=== PATIENT | female | born 1940 | race Caucasian/White ===

== ENCOUNTER → 2020-03-26 | Outpatient (CLI) | payer MEDICARE, OTHER | LOC: AMSURD 10:19 | DX: R00.2 Palpitations (principal) ==

== ENCOUNTER → 2020-03-30 | Outpatient (CLI) | payer MEDICARE, OTHER | LOC: RAD 08:00 | DX: R10.11 Right upper quadrant pain (principal); R11.2 Nausea with vomiting, unspecified ==

== ENCOUNTER → 2020-09-01 | Outpatient (CLI) | payer MEDICARE, OTHER | LOC: RAD 10:06 | DX: S62.305A Unspecified fracture of fourth metacarpal bone, left hand, initial encounter for closed fracture (principal); M19.042 Primary osteoarthritis, left hand ==

== ENCOUNTER → 2020-09-09 | Outpatient (CLI) | payer MEDICARE, OTHER | LOC: RAD 10:15 | DX: M79.642 Pain in left hand (principal); R07.89 Other chest pain ==

== ENCOUNTER → 2021-02-11 | Outpatient (CLI) | payer MEDICARE, OTHER | LOC: LAB 16:53 | DX: N39.0 Urinary tract infection, site not specified (principal) ==

== ENCOUNTER → 2021-03-12 | Outpatient (CLI) | payer MEDICARE, OTHER | LOC: LAB 08:26 | DX: Z01.89 Encounter for other specified special examinations (principal) ==

== ENCOUNTER → 2021-11-02 | Outpatient (CLI) | payer MEDICARE | LOC: RAD 14:42 | DX: Z85.9 Personal history of malignant neoplasm, unspecified (principal) ==

== ENCOUNTER → 2022-04-25 | Outpatient (CLI) | payer MEDICARE | LOC: LAB 09:34 | DX: Z00.00 Encounter for general adult medical examination without abnormal findings (principal); Z13.220 Encounter for screening for lipoid disorders; E03.4 Atrophy of thyroid (acquired); K90.9 Intestinal malabsorption, unspecified; E53.8 Deficiency of other specified B group vitamins; M72.0 Palmar fascial fibromatosis [Dupuytren]; Z85.048 Personal history of other malignant neoplasm of rectum, rectosigmoid junction, and anus ==

== ENCOUNTER → 2023-09-21 | Outpatient (CLI) | payer MEDICARE ==
[~2023-09-21] MED LIST: BISOPROLOL FUMA10 M1 PO; BISOPROLOL FUMAR5 GM MC; CEFDINIR300 MG PO; CLINDAMYCIN 300MG PO; CYANOCOBAL1000 MCG/1 IM; LEVOTHYROXIN0.075 MG PO; NORCO 325 MG-51 TA1 PO
[2023-09-21 11:57] LABS: BASO # 0.05 K/mm3 (0.02-0.10); EOS % 1.6 % (1.0-5.0); HEMATOCRIT 34.8 % (37.0-47.0); LYMPH# 1.37 K/mm3 (1.50-4.00); MEAN CELL VOLUME 109 fl (78-100); MEAN CORPUSCULAR HEMOGLOBIN 35 pg (27-31); MEAN CORPUSCULAR HGB CONC 32 g/dL (33-37); MEAN PLATELET VOLUME 11.2 fl (7.4-10.4); MONO # 0.51 K/mm3 (0.20-0.80); NEU # 4.11 K/mm3 (1.40-6.50); PLATELET COUNT 153 K/mm3 (130-400); RED BLOOD COUNT 3.19 M/mm3 (4.10-5.30); RED CELL DISTRIBUTION WIDTH 12.2 % (11.5-14.5); WHITE BLOOD COUNT 6.2 K/mm3 (4.8-10.8)
[2023-09-21 12:04] LABS: CALCIUM 9.7 mg/dL (8.3-10.5)
[2023-09-21 12:06] LABS: TOTAL PROTEIN 6.6 g/dL (6.2-8.1)
[2023-09-21 12:07] LABS: TOTAL BILIRUBIN 0.6 mg/dL (0.2-1.2)
== END ==
LOC: LAB 11:26
PROVIDERS: Physician Assistant
DX: Z12.11 Encounter for screening for malignant neoplasm of colon (principal); E03.4 Atrophy of thyroid (acquired); E78.5 Hyperlipidemia, unspecified; K90.9 Intestinal malabsorption, unspecified; E53.8 Deficiency of other specified B group vitamins; Z85.048 Personal history of other malignant neoplasm of rectum, rectosigmoid junction, and anus

== ENCOUNTER → 2024-10-10 | Outpatient (CLI) | payer MEDICARE ==
[2024-10-10 12:38] LABS: HEMATOCRIT 36.2 % (37.0-47.0); HEMOGLOBIN 11.3 g/dL (12.5-16.0); MEAN PLATELET VOLUME 11.5 fl (7.4-10.4); RED BLOOD COUNT 3.27 M/mm3 (4.10-5.30); RED CELL DISTRIBUTION WIDTH 12.2 % (11.5-14.5)
[2024-10-10 12:46] LABS: ALBUMIN 4.2 g/dL (3.4-4.8)
[2024-10-10 12:47] LABS: CALCIUM 9.5 mg/dL (8.3-10.5)
[2024-10-10 12:49] LABS: TOTAL PROTEIN 6.8 g/dL (6.2-8.1)
[2024-10-10 12:50] LABS: TOTAL BILIRUBIN 0.6 mg/dL (0.2-1.2)
== END ==
LOC: LAB 12:21
PROVIDERS: Physician Assistant
DX: E03.4 Atrophy of thyroid (acquired) (principal); R00.2 Palpitations; E78.5 Hyperlipidemia, unspecified; K90.9 Intestinal malabsorption, unspecified

== ENCOUNTER → 2024-12-16 | Outpatient (CLI) | payer MEDICARE | LOC: LAB 13:24 | DX: E55.9 Vitamin D deficiency, unspecified (principal); E03.4 Atrophy of thyroid (acquired) ==

== ENCOUNTER → 2025-01-01 | Outpatient (CLI) | payer MEDICARE ==
[~2025-01-01] MED LIST changes: +BUMETANIDE0.5 M1 PO; +FUROSEMIDE20 MG PO
== END ==
LOC: LAB 07:00
DX: Z13.1 Encounter for screening for diabetes mellitus (principal)

== ENCOUNTER 2025-01-02 10:43 | Emergency (ER) | payer MEDICARE ==
[~2025-01-02] VITALS: Ht 172.7 cm; Wt 85.0 kg
[~2025-01-02 10:43] MED LIST changes: -BUMETANIDE0.5 M1 PO; -FUROSEMIDE20 MG PO
[2025-01-02 11:05] LABS: BASO # 0.04 K/mm3 (0.02-0.10); EOS # 0.05 K/mm3 (0.04-0.40); EOS % 0.6 % (1.0-5.0); HEMATOCRIT 28.3 % (37.0-47.0); LYMPH# 1.36 K/mm3 (1.50-4.00); MEAN CELL VOLUME 109 fl (78-100); MEAN CORPUSCULAR HEMOGLOBIN 35 pg (27-31); MEAN CORPUSCULAR HGB CONC 32 g/dL (33-37); MEAN PLATELET VOLUME 11.6 fl (7.4-10.4); MONO # 0.62 K/mm3 (0.20-0.80); NEU # 6.44 K/mm3 (1.40-6.50); PLATELET COUNT 131 K/mm3 (130-400); RED BLOOD COUNT 2.59 M/mm3 (4.10-5.30); WHITE BLOOD COUNT 8.5 K/mm3 (4.8-10.8)
[2025-01-02 11:12] LABS: ALBUMIN 3.8 g/dL (3.4-4.8)
[2025-01-02 11:13] LABS: SODIUM 144 mmol/L (136-145)
[2025-01-02 11:14] LABS: CALCIUM 9.2 mg/dL (8.3-10.5)
[2025-01-02 11:15] LABS: GLUCOSE 93 mg/dL (65-105); TOTAL PROTEIN 6.3 g/dL (6.2-8.1)
[2025-01-02 11:16] LABS: CARBON DIOXIDE 21 mmol/L (23-31)
[2025-01-02 11:17] LABS: TOTAL BILIRUBIN 0.6 mg/dL (0.2-1.2)
[2025-01-02 11:20] LABS: AST-SGOT 31 U/L (5-34); D-DIMER 1.54 mg/L FEU (0.15-0.50)
[2025-01-02 11:21] LABS: ALT/SGPT 23 U/L (0-55)
[2025-01-02 11:22] LABS: LIPASE 11 U/L (8-78)
[2025-01-02 11:28] LABS: TROPONIN-I < 0.030 ng/mL (0.00-0.033)
[2025-01-02] MEDS ORDERED: FUROSEMIDE20 MG PO (11:33)
[2025-01-02] MEDS ORDERED: Iohexol 350 - 100 ML VIAL IV ONE (11:46)
[2025-01-02] MEDS ORDERED: NS 100 ML IV SCH (11:47)
[2025-01-02] MEDS ORDERED: Bumetanide 1 MG/4 ML VIAL IV ONE (12:45)
[2025-01-02 13:45] VITALS: BP 167/93
== END 2025-01-02 13:45 | disposition other institution (70) ==
LOC: ED 10:43
PROVIDERS: Family Medicine
DX: R60.0 Localized edema (principal); D64.9 Anemia, unspecified; R79.1 Abnormal coagulation profile; I44.0 Atrioventricular block, first degree; R00.1 Bradycardia, unspecified; I10 Essential (primary) hypertension; Z79.899 Other long term (current) drug therapy; Z85.038 Personal history of other malignant neoplasm of large intestine
CPT/HCPCS: J1650; Q9967

== ENCOUNTER 2025-01-02 13:24 | Inpatient (IN) | payer MEDICARE ==
[~2025-01-02] VITALS: Ht 172.7 cm; Wt 79.7 kg
[~2025-01-02 13:24] MED LIST changes: +FUROSEMIDE20 MG PO
[2025-01-02] MEDS ORDERED: Polyethylene Glycol 3350 Powder 17 GM PACKET PO PRN (13:30)
[2025-01-02] MEDS ORDERED: Acetaminophen 500 MG TAB PO PRN (13:30)
[2025-01-02 14:18] VITALS: BP 180/85
[2025-01-02 15:58] VITALS: BP 166/77
[2025-01-02 19:00] VITALS: BP 172/85
[2025-01-02 23:00] VITALS: BP 160/76
[2025-01-03 03:00] VITALS: BP 119/71
[2025-01-03 07:00] VITALS: BP 151/75
[2025-01-03 07:16] LABS: BASO # 0.04 K/mm3 (0.02-0.10); EOS # 0.03 K/mm3 (0.04-0.40); EOS % 0.4 % (1.0-5.0); HEMATOCRIT 23.9 % (37.0-47.0); HEMOGLOBIN 7.7 g/dL (12.5-16.0); MEAN CELL VOLUME 108 fl (78-100); MEAN CORPUSCULAR HEMOGLOBIN 35 pg (27-31); MEAN CORPUSCULAR HGB CONC 32 g/dL (33-37); MEAN PLATELET VOLUME 11.6 fl (7.4-10.4); MONO # 0.66 K/mm3 (0.20-0.80); PLATELET COUNT 130 K/mm3 (130-400); RED CELL DISTRIBUTION WIDTH 12.9 % (11.5-14.5); WHITE BLOOD COUNT 7.8 K/mm3 (4.8-10.8)
[2025-01-03 07:22] LABS: ALBUMIN 3.2 g/dL (3.4-4.8)
[2025-01-03 07:23] LABS: TOTAL PROTEIN 5.2 g/dL (6.2-8.1)
[2025-01-03 07:24] LABS: CALCIUM 8.5 mg/dL (8.3-10.5)
[2025-01-03 07:25] LABS: TOTAL BILIRUBIN 0.8 mg/dL (0.2-1.2)
[2025-01-03 07:26] LABS: RED BLOOD COUNT 2.21 M/mm3 (4.10-5.30)
[2025-01-03] MEDS ORDERED: Bumetanide 1 MG/4 ML VIAL IV SCH (09:00)
[2025-01-03 11:40] VITALS: BP 125/80
[2025-01-03 17:07] LABS: HEMATOCRIT 28.9 % (37.0-47.0); HEMOGLOBIN 8.4 g/dL (12.5-16.0)
[2025-01-03] MEDS ORDERED: Bumetanide 1 MG/4 ML VIAL IV ONE (18:30)
[2025-01-03 19:05] VITALS: BP 149/79
[2025-01-03] MEDS ORDERED: Acetaminophen 325 MG TAB PO PRN (19:45)
[2025-01-03 20:12] LABS: URINE APPEARANCE CLEAR (CLEAR); URINE BILIRUBIN NEGATIVE (NEGATIVE); URINE BLOOD 2+ (NEGATIVE); URINE COLOR LIGHT YELLOW (YELLOW); URINE GLUCOSE NEGATIVE (NEGATIVE); URINE KETONE NEGATIVE (NEGATIVE); URINE LEUKOCYTE ESTERASE NEGATIVE (NEGATIVE); URINE NITRATE NEGATIVE (NEGATIVE); URINE PROTEIN(semi-quant) 2+ (NEGATIVE)
[2025-01-03 23:00] VITALS: BP 128/66
[2025-01-04 02:50] VITALS: BP 144/75
[2025-01-04 07:00] VITALS: BP 159/69
[2025-01-04 07:21] LABS: BASO # 0.04 K/mm3 (0.02-0.10); EOS # 0.12 K/mm3 (0.04-0.40); EOS % 2.2 % (1.0-5.0); HEMATOCRIT 25.2 % (37.0-47.0); HEMOGLOBIN 8.2 g/dL (12.5-16.0); LYMPH# 0.91 K/mm3 (1.50-4.00); MEAN CELL VOLUME 109 fl (78-100); MEAN CORPUSCULAR HEMOGLOBIN 36 pg (27-31); MEAN CORPUSCULAR HGB CONC 33 g/dL (33-37); MEAN PLATELET VOLUME 11.3 fl (7.4-10.4); MONO # 0.48 K/mm3 (0.20-0.80); NEU # 3.96 K/mm3 (1.40-6.50); PLATELET COUNT 119 K/mm3 (130-400); RED BLOOD COUNT 2.31 M/mm3 (4.10-5.30); RED CELL DISTRIBUTION WIDTH 12.8 % (11.5-14.5); WHITE BLOOD COUNT 5.5 K/mm3 (4.8-10.8)
[2025-01-04 07:31] LABS: ALBUMIN 3.2 g/dL (3.4-4.8)
[2025-01-04 07:32] LABS: CALCIUM 8.3 mg/dL (8.3-10.5)
[2025-01-04 07:33] LABS: TOTAL PROTEIN 5.4 g/dL (6.2-8.1)
[2025-01-04 07:35] LABS: TOTAL BILIRUBIN 0.7 mg/dL (0.2-1.2)
[2025-01-04 11:00] VITALS: BP 160/65
[2025-01-04 19:00] VITALS: BP 142/75
[2025-01-04 23:32] VITALS: BP 120/71
[2025-01-05 03:25] VITALS: BP 135/79
[2025-01-05 08:13] VITALS: BP 152/80
[2025-01-05] MEDS ORDERED: Bumetanide 1 MG TAB PO SCH (09:22)
[2025-01-05] MEDS ORDERED: Bumetanide 1 MG/4 ML VIAL IV SCH (09:51)
[2025-01-05 09:59] LABS: BASO # 0.05 K/mm3 (0.02-0.10); EOS % 1.7 % (1.0-5.0); HEMATOCRIT 27.7 % (37.0-47.0); HEMOGLOBIN 8.8 g/dL (12.5-16.0); LYMPH# 0.91 K/mm3 (1.50-4.00); MEAN CELL VOLUME 108 fl (78-100); MEAN CORPUSCULAR HEMOGLOBIN 34 pg (27-31); MEAN CORPUSCULAR HGB CONC 32 g/dL (33-37); MEAN PLATELET VOLUME 11.6 fl (7.4-10.4); MONO # 0.44 K/mm3 (0.20-0.80); NEU # 4.41 K/mm3 (1.40-6.50); PLATELET COUNT 138 K/mm3 (130-400); RED BLOOD COUNT 2.56 M/mm3 (4.10-5.30); RED CELL DISTRIBUTION WIDTH 12.8 % (11.5-14.5); WHITE BLOOD COUNT 5.9 K/mm3 (4.8-10.8)
[2025-01-05 10:02] LABS: ALBUMIN 3.5 g/dL (3.4-4.8)
[2025-01-05 10:04] LABS: CALCIUM 8.7 mg/dL (8.3-10.5)
[2025-01-05 10:07] LABS: TOTAL BILIRUBIN 0.8 mg/dL (0.2-1.2)
[2025-01-05 11:04] VITALS: BP 138/79
[2025-01-05 15:22] VITALS: BP 164/80
[2025-01-05 20:39] VITALS: BP 162/84
[2025-01-05 23:32] VITALS: BP 147/74
[2025-01-06] MEDS ORDERED: diphenhydrAMINE 25 MG CAP PO PRN (03:00)
[2025-01-06 03:05] VITALS: BP 147/87
[2025-01-06 07:00] VITALS: BP 144/77
[2025-01-06 08:33] LABS: BASO # 0.03 K/mm3 (0.02-0.10); EOS # 0.08 K/mm3 (0.04-0.40); EOS % 1.4 % (1.0-5.0); HEMATOCRIT 28.7 % (37.0-47.0); HEMOGLOBIN 9.1 g/dL (12.5-16.0); LYMPH# 1.21 K/mm3 (1.50-4.00); MEAN CELL VOLUME 108 fl (78-100); MEAN CORPUSCULAR HEMOGLOBIN 34 pg (27-31); MEAN CORPUSCULAR HGB CONC 32 g/dL (33-37); MEAN PLATELET VOLUME 11.3 fl (7.4-10.4); MONO # 0.54 K/mm3 (0.20-0.80); NEU # 3.85 K/mm3 (1.40-6.50); PLATELET COUNT 140 K/mm3 (130-400); RED BLOOD COUNT 2.65 M/mm3 (4.10-5.30); RED CELL DISTRIBUTION WIDTH 12.8 % (11.5-14.5); WHITE BLOOD COUNT 5.7 K/mm3 (4.8-10.8)
[2025-01-06 08:40] LABS: ALBUMIN 3.5 g/dL (3.4-4.8)
[2025-01-06 08:41] LABS: CALCIUM 8.5 mg/dL (8.3-10.5)
[2025-01-06 08:43] LABS: TOTAL PROTEIN 5.9 g/dL (6.2-8.1)
[2025-01-06 08:44] LABS: TOTAL BILIRUBIN 0.7 mg/dL (0.2-1.2)
[2025-01-06] MEDS ORDERED: Bumetanide 1 MG TAB PO SCH (09:29)
[2025-01-06] MEDS ORDERED: BUMETANIDE0.5 M1 PO (10:00)
== END 2025-01-06 11:15 | disposition home or self-care (01) | DRG 293 ==
LOC: MED/SURG 13:24
PROVIDERS: Family Medicine; Physician Assistant; ADMIT Family Medicine
DX: I50.9 Heart failure, unspecified (principal); E03.9 Hypothyroidism, unspecified; D64.9 Anemia, unspecified; R00.1 Bradycardia, unspecified; I44.0 Atrioventricular block, first degree; E53.8 Deficiency of other specified B group vitamins; G62.9 Polyneuropathy, unspecified; Z85.038 Personal history of other malignant neoplasm of large intestine; Z79.890 Hormone replacement therapy; Z79.899 Other long term (current) drug therapy
CPT/HCPCS: J1650

== ENCOUNTER → 2025-01-27 | Outpatient (CLI) | payer MEDICARE ==
[~2025-01-27] MED LIST changes: +BUMETANIDE0.5 M1 PO
[2025-01-27 11:28] LABS: BASO # 0.05 K/mm3 (0.02-0.10); EOS # 0.09 K/mm3 (0.04-0.40); EOS % 0.9 % (1.0-5.0); HEMATOCRIT 31.1 % (37.0-47.0); HEMOGLOBIN 9.7 g/dL (12.5-16.0); LYMPH# 1.46 K/mm3 (1.50-4.00); MEAN CELL VOLUME 112 fl (78-100); MEAN CORPUSCULAR HEMOGLOBIN 35 pg (27-31); MEAN CORPUSCULAR HGB CONC 31 g/dL (33-37); MEAN PLATELET VOLUME 11.4 fl (7.4-10.4); MONO # 0.66 K/mm3 (0.20-0.80); NEU # 7.69 K/mm3 (1.40-6.50); PLATELET COUNT 150 K/mm3 (130-400); RED BLOOD COUNT 2.77 M/mm3 (4.10-5.30)
[2025-01-27 11:33] LABS: CALCIUM 8.9 mg/dL (8.3-10.5)
[2025-01-27 11:35] LABS: TOTAL PROTEIN 6.7 g/dL (6.2-8.1)
[2025-01-27 11:36] LABS: TOTAL BILIRUBIN 0.7 mg/dL (0.2-1.2)
== END ==
LOC: LAB 11:02
PROVIDERS: Physician Assistant
DX: D64.9 Anemia, unspecified (principal); R94.4 Abnormal results of kidney function studies